=== PATIENT | female | born 1945 | race African-American/Black ===

== ENCOUNTER 2016-08-18 14:53 | Inpatient (IN) ==
--- NOTE | 2016-08-18 15:10 | ED EKG INTERP ---
EKG Interpretation - EKG Time of EKG reading by physician:: 15:02 EKG Read and Signed by:: Latoya Cohen EKG Interpretation (*Must complete 3 of following elements*): Abnormal Rate: 114 Rhythm: Sinus Tachycardia with PSVCs QRS: LVH FL Interval: normal ST Wave: normal Comments: LAE Attestation - Scribe Verification/Attestation Scribe:: Abel Cobos Acting as Scribe for:: Latoya Cohen Scribe documention review:: This chart was documented by a scribe and accurately reflects the service the provider performed and the decisions made by the provider. Physician Attestation - Physician Attestation I, the provider, attest to the following statement:: Latoya Cohen Physician documentation Attestation:: This documentation recorded by the scribe accurately reflects the service I personally performed and the decisions made by me.
[2016-08-18 15:33] LABS: MANUAL DIFF NEEDED? NO
[2016-08-18 15:40] LABS: BASO% 0.4 % (0.0-0.8); EOS# 0.15 X1000 (0.0-0.7); EOS% 2.2 % (0.0-10.0); HEMATOCRIT 34.3 % (37.0-47.0); HEMOGLOBIN 11.2 g/dL (12.0-16.0); LYMPH% 26.9 % (20.5-51.1); MCH 26.2 PG (27-31); MCHC 32.7 g/dL (33-37); MCV 80.1 FL (81-99); MONO# 0.54 X1000 (0.11-0.59); MONO% 8.1 % (1.7-9.3); MPV 10.8 FL (7.4-10.4); NEUT% 62.4 % (42.2-75.2); PLT 275 X1000 (130-400); RBC 4.28 XMIL (4.2-5.4)
[2016-08-18 16:09] LABS: ALBUMIN 3.6 g/dL (3.5-5.0); CALCIUM 8.6 mg/dL (8.8-10.2); POTASSIUM 4.4 mmol/L (3.5-5.1); TOTAL BILIRUBIN 0.33 mg/dL (0.20-1.00); TOTAL PROTEIN 7.1 g/dL (6.3-8.3)
[2016-08-18 16:11] LABS: INR 0.98; PROTIME 10.3 Seconds (9.2-11.7)
[2016-08-18 16:33] LABS: PTT 20.4 Seconds (22.0-36.0)
--- NOTE | 2016-08-18 16:37 | Diag Imaging Result Document ---
PROCEDURE NAME: CHEST-2 VIEWS - 08/18/2016 CHEST X-RAY, 2 VIEWS: COMPARISON: 06/08/2014. FINDINGS: Stable cardiomegaly. Stable pulmonary vascular congestion. There are bilateral indistinct interstitial infiltrates suggesting pulmonary edema. There are trace pleural effusions. IMPRESSION: Cardiomegaly, pulmonary edema, pleural effusions.
[2016-08-18] MEDS ORDERED: LASIX IV ONE (16:50)
[2016-08-18] MEDS ORDERED: XOPENEX NEB INH ONE (16:51)
--- NOTE | 2016-08-18 16:57 | PROVIDER DOCUMENTATION ---
HPI-Cardiac General - General Chief Complaint: Shortness of Breath Stated Complaint: cough/congestion/elevated bp Time Seen by Provider: 08/18/16 16:23 Source: patient Allergies/Adverse Reactions: Patient Allergies Allergy/AdvReac Type Severity Reaction Status Date / Time No Known Allergies Allergy Verified 08/18/16 15:28 Home Medications: Home Medication List Medication Instructions Recorded Confirmed Last Taken Type Amlodipine Besylate [Norvasc] 5 mg PO DAILY 06/09/14 06/09/14 Unknown History Aspirin [Ecotrin] 325 mg PO DAILY 06/09/14 06/09/14 Unknown History Acetaminophen [Tylenol] 325 mg PO Q4-6H PRN PRN #0 tablet 06/13/14 Unknown Rx Amlodipine [Norvasc] 5 mg PO DAILY #30 tablet 06/13/14 Unknown Rx Atenolol 50 mg PO DAILY #30 06/13/14 06/09/14 Unknown Rx Atorvastatin Calcium [Lipitor] 40 mg PO QHS #30 06/13/14 06/09/14 Unknown Rx Furosemide [Lasix] 40 mg PO BID #0 06/13/14 06/09/14 Unknown Rx Glimepiride [Amaryl] 1 mg PO BID #0 tablet 06/13/14 Unknown Rx Isosorbide Dinitrate [Isordil] 20 mg PO TID #270 06/13/14 06/09/14 Unknown Rx Potassium Chloride 30 meq PO TID #0 tablet.er 06/13/14 Unknown Rx RAMIpril [Altace] 5 mg PO DAILY #30 capsule 06/13/14 Unknown Rx - History of Present Illness-Cardiac Nature of Presenting Problem: 71 y/o F presented to ER complaining of progressive shortness of breath at rest. She has a hx of CHF and ran out of her medication. She denies any other symptoms including chest pain, palpitation, nausea, sweating or dizziness. Quality of Pain: reports: none Onset/Duration: 24 hours ago Timing: still present, getting worse Modifying Factors: improves with: other (erect position) Palpitation Quality: N/A History of arrythmia: reports: none Recent use of:: reports: no stimulants Prior Chest Pain/Cardiac Workup: reports: angina, cardiac cath (mild disease - no stent) Associated Symptoms: reports: edema, fatigue, shortness of breath Similar Symptoms Previously?: Yes Recently Seen Here or By Another Healthcare Provider: No Review of Systems - Adult - REVIEW OF SYSTEMS - ADULT Constitutional: reports: fatique Eyes: reports: no symptoms reported Ears, Nose, Mouth & Throat: reports: no symptoms reported Cardiovascular: reports: edema, orthopnea. denies: chest pain Respiratory: reports: dyspnea on exertion, shortness of breath. denies: cough, excessive sputum production Gastrointestinal: reports: no symptoms reported Genitourinary: reports: no symptoms reported Musculoskeletal: reports: no symptoms reported, back pain Neurological: reports: no symptoms reported Psychiatric: reports: no symptoms reported Endocrine: reports: no symptoms reported Hematologic/Lymphatic: reports: no symptoms reported Past History - Adult - PAST MEDICAL HISTORY-ADULT Review of Records: reports: Nursing Assessment Review, Medications Reviewed Cardiovascular: reports: CHF, HTN, hyperlipidemia Neurological: reports: CVA (in 2010) Endocrine/Immune: reports: Diabetes - PRIOR SURGERIES/PROCEDURES Surgical/Procedure History: reports: appendectomy - IMMUNIZATION STATUS Flu Vaccine: UTD Physical Exam-General - PHYSICAL EXAM-ADULT Initial Vital Signs Reviewed: Yes - CONSTITUTIONAL General Appearance: severe distress, obese - EYES Eyes: PERRL/EOMI - HEAD, EARS, NOSE, MOUTH & THROAT HENMT: normal ENT inspection - NECK Neck: supple - RESPIRATORY Respiratory: chest non-tender, respiratory distress, accessory muscle use, rales , increased rate - CARDIOVASCULAR Cardiovascular: tachycardia - GASTROINTESTINAL (ABDOMEN) Abdominal Exam: normal bowel sounds, soft - MUSCULOSKELETAL Extremity: pedal edema (1+) Peripheral Pulses: dorsalis-pedis (R): 1+, dorsalis-pedis (L): 1+ - SKIN Integumentary: diaphoresis - NEUROLOGIC Neurologic: grossly normal - PSYCHIATRIC Psych/Mental Status: oriented x 3 Progress - PLAN OF CARE/RESULTS Progress/Plan/Lab Results: Vital Signs - 24 hr 08/18/16 08/18/16 14:55 16:25 Temperature 98.3 F Pulse Rate 132 H 106 H Respiratory 24 22 Rate Blood Pressure 171/139 184/121 O2 Sat by Pulse 96 99 Oximetry Laboratory Tests 08/18/16 08/18/16 08/18/16 15:17 15:17 15:17 WBC 6.70 RBC 4.28 Hgb 11.2 L Hct 34.3 L MCV 80.1 L MCH 26.2 L MCHC 32.7 L RDW Std Deviation 13.7 Plt Count 275 MPV 10.8 H Immature Gran % (Auto) 0.0 Neut % (Auto) 62.4 Lymph % (Auto) 26.9 [place] % (Auto) 8.1 Eos % (Auto) 2.2 Baso % (Auto) 0.4 Immature Gran # (Auto) 0.00 Neut # (Auto) 4.18 Lymph # (Auto) 1.80 [place] # (Auto) 0.54 Eos # (Auto) 0.15 Baso # (Auto) 0.03 PT INR PTT (Actin FS) D-Dimer 0.78 H Sodium 142 Potassium 4.4 Chloride 109 H Carbon Dioxide 16 L Anion Gap 17 BUN 35 H Creatinine 2.4 H Estimated GFR/1.73 m2 24 BUN/Creatinine Ratio 15 Glucose 144 H Calculated Osmolality 294 Calcium 8.6 L Magnesium 2.0 Total Bilirubin 0.33 AST 13 ALT 10 Alkaline Phosphatase 93 Creatine Kinase 89 Troponin T Kkj-W-Pzuusnwojnt Pept Total Protein 7.1 Albumin 3.6 Globulin 3.5 Albumin/Globulin Ratio 1.0 08/18/16 08/18/16 08/18/16 15:17 15:17 15:17 WBC RBC Hgb Hct MCV MCH MCHC RDW Std Deviation Plt Count MPV Immature Gran % (Auto) Neut % (Auto) Lymph % (Auto) [place] % (Auto) Eos % (Auto) Baso % (Auto) Immature Gran # (Auto) Neut # (Auto) Lymph # (Auto) [place] # (Auto) Eos # (Auto) Baso # (Auto) PT 10.3 INR 0.98 PTT (Actin FS) 20.4 L D-Dimer Sodium Potassium Chloride Carbon Dioxide Anion Gap BUN Creatinine Estimated GFR/1.73 m2 BUN/Creatinine Ratio Glucose Calculated Osmolality Calcium Magnesium Total Bilirubin AST ALT Alkaline Phosphatase Creatine Kinase Troponin T 0.017 Vrl-D-Kaqlsonwzkp Pept 6054 H Total Protein Albumin Globulin Albumin/Globulin Ratio - XRAY 1 XRAY Study: Chest Impression: Abnormal XRAY Interpretation: cardiomegaly - pulmonary edema - CONSULTS/PCP/HOSPITALIST Notification #1 *Consult/PCP/Hospitalist*: Discussed case with Dr. Randall (admit under Dr. Austin) Time Discussed: 16:59 Consult Disposition: Admit (ICU) Departure - Departure Time of Disposition Order: 16:57 DIAGNOSIS: Pulmonary edema, Acute systolic CHF (congestive heart failure), NYHA class 4, Hypertensive emergency Certified Medical Emergency: Emergent Condition: Critical Referrals: David Austin MD [Primary Care Provider] -
[2016-08-18] MEDS ORDERED: NS NEB INH SCH (17:00)
[2016-08-18] MEDS ORDERED: NITROGLYCERIN 50 MG/D5W 250 ML IV SCH (17:00)
--- NOTE | 2016-08-18 18:47 | HISTORY AND PHYSICAL ---
CHIEF COMPLAINT: Shortness of breath, paroxysmal nocturnal dyspnea, orthopnea. Since 2 days ago. HISTORY OF PRESENT ILLNESS: She is a 71-year-old female, patient of Dr. Austin and was not seen him for a while, came to the ER with a 2-day history of shortness of breath, orthopnea and cough. No swelling of feet. Patient was tachycardic and hypertensive. ER workup, chest x-ray, cardiomegaly consistent with CHF. ProBNP was high. The patient was given IV Lasix 80, IV nitroglycerin drip. Patient was stable. Denies any chest pain. She was admitted in 2014 at [facility]. She has been and basically admitted now acute decompensated systolic heart failure due to uncontrolled hypertension. PAST MEDICAL HISTORY: Type 2 diabetes, metabolic syndrome, hypertension, history of kidney stones, nonischemic cardiomyopathy, three-vessel disease, noncritical left heart catheterization by Dr. Renee. History of chronic congestive heart failure, systolic dysfunction, EF 40%. Chronic kidney disease. Baseline creatinine 1.9. PAST SURGICAL HISTORY: Appendectomy. MEDICATIONS: Aspirin 325 daily, Lipitor 40 daily, atenolol 50 mg daily, Altace 10 mg daily, Amaryl 1 mg daily, Lasix 40 daily, Isordil 30 mg b.i.d. ALLERGIES: Not known. 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 No smoking. No alcohol. Two of her children . FAMILY HISTORY: Mom of kidney failure. Father of cancer, not known, brothers have diabetes. REVIEW OF SYSTEMS: HEENT: No headache. No vision problem. No earache. No sore throat. Neck: No goiter. No lymphadenopathy. No bruits. Cardiopulmonary: No chest pain. Basically shortness of breath, orthopnea. Slightly PND, cough, no swelling of feet. GI: No nausea, vomiting, abdominal pain. : No history of hesitancy, frequency, dysuria, hematuria. Skin: No skin rashes. Musculoskeletal: No back pain. Endocrine: Diabetes not able to tolerate or take metformin due to chronic kidney disease. Neurologic: No focal symptoms or weakness, seizures, dizziness or vertigo. PHYSICAL EXAMINATION: VITAL SIGNS: She is tachycardic, blood pressure is 170/139, not in respiratory distress on 2 L nasal cannula. 5 feet 6, 275 pounds. HEENT: Atraumatic, normocephalic. Pupils equal, reactive to light. TMs are normal. Nose and throat within normal limits. NECK: Supple. No lymphadenopathy. JVD not able to see. CHEST: Bilateral air entry. Some wheezing. HEART: Sounds are tachycardic. No murmur. BREASTS: Deferred. ABDOMEN: Belly is soft, obese. No signs of peritonitis. Small umbilical hernia noted. Scar present in the right paramedian area from the previous appendectomy. EXTREMITIES: No peripheral edema, cyanosis, clubbing. Pulses are palpable. No signs of gangrene. NEUROLOGICAL: No obvious deficits noted. INVESTIGATIONS: CBC: White cell count 6.7, hematocrit 34, platelet 275,000. PT/INR is normal. D-dimer slightly elevated. SMA 7: Sodium 142, potassium 4.2, chloride 109, BUN 35, creatinine 2.4, glucose 144, calcium 8.6. ProBNP 6000. Cardiac enzymes were normal. Chest x-ray: Cardiomegaly consistent with CHF. ASSESSMENT AND PLAN: 1. A 71-year-old female, admitted to the hospital with acute decompensated systolic heart failure due to uncontrolled hypertension. Plan is oxygen, control the blood pressure with hydralazine, resume home medicines. IV Lasix was given. Fluid restrictions. Input and output. 2. Nonischemic coronary artery disease. Follow up on cardiac enzymes. 3. Type 2 diabetes. On Amaryl. Follow up on sliding scale. Check the A1c. 4. Deep venous thrombosis prophylaxis with subcutaneous heparin. Gastrointestinal prophylaxis with intravenous Protonix. 5. Reconcile home medications and also we will check the echocardiography and follow up on serial cardiac enzymes. The patient is stable, will be monitored on the flow and Dr. Austin is going to follow up in the morning. cc: Shaun Randall MD
[2016-08-18] MEDS ORDERED: APRESOLINE IV PRN (19:43)
[2016-08-18] MEDS: HUMULIN R SUBQ SCH (21:34)
[2016-08-18] MEDS: ISORDIL PO SCH (21:34)
[2016-08-18] MEDS: LIPITOR PO SCH (21:34)
[2016-08-18] MEDS: PROTONIX IV SCH (21:35)
[2016-08-18] MEDS: NITROGLYCERIN TOP SCH (21:35)
[2016-08-18] MEDS: SODIUM CHLORIDE 0.9% INJ SCH (21:35)
[2016-08-18] MEDS: HEPARIN SUBQ SCH (21:42)
[2016-08-19 04:00] LABS: ALLEN TEST YES; BE -6.2 mmoll (-3.0-3.0); BLOOD TYPE ARTERIAL; DRAW SITE R RADIAL; METHB 1.5 % (0.0-1.5); MODALITY CANNULA; O2(CT) 14.3 mL/dL (15.0-23.0); PCO2(98.6) 35 mmHg (35-45); PO2(98.6) 87 mmHg (60-100); SAMPLE BLOOD; SAO2 97.7 % (95.0-100.0); THB 10.6 g/dL (11.5-17.4); pH(98.6) 7.34 (7.35-7.45)
[2016-08-19] MEDS: NITROGLYCERIN TOP SCH ×4 (04:55→21:53)
--- NOTE | 2016-08-19 05:50 | EKG Report ---
Test Performed on : 08/18/2016 3:02:56 PM Test Reason : No order in [facility] Blood Pressure : / mmHG Vent. Rate : 114 BPM Atrial Rate : 114 BPM P-R Int : 128 ms QRS Dur : 090 ms QT Int : 346 ms P-R-T Axes : 061 056 109 degrees QTc Int : 476 ms Sinus tachycardia. with premature supraventricular complexes. Possible Left atrial enlargement Left ventricular hypertrophy with repolarization abnormality Abnormal ECG When compared with ECG of 12-JUN-2014 06:05, premature supraventricular complexes. are now present Unconfirmed Result
[2016-08-19 06:21] LABS: MANUAL DIFF NEEDED? NO
[2016-08-19 06:28] LABS: BASO% 0.3 % (0.0-0.8); EOS# 0.18 X1000 (0.0-0.7); EOS% 2.6 % (0.0-10.0); HEMATOCRIT 32.2 % (37.0-47.0); HEMOGLOBIN 10.4 g/dL (12.0-16.0); LYMPH# 2.38 X1000 (1.2-3.4); LYMPH% 33.8 % (20.5-51.1); MCH 26.1 PG (27-31); MCHC 32.3 g/dL (33-37); MCV 80.9 FL (81-99); MONO# 0.81 X1000 (0.11-0.59); MONO% 11.5 % (1.7-9.3); MPV 11.3 FL (7.4-10.4); NEUT% 51.8 % (42.2-75.2); PLT 278 X1000 (130-400); RBC 3.98 XMIL (4.2-5.4)
[2016-08-19] MEDS: HUMULIN R SUBQ SCH ×4 (06:34→20:19)
[2016-08-19 06:56] LABS: AGAP 17; BUN 39 mg/dL (8-22); CALCIUM 8.6 mg/dL (8.8-10.2); CHLORIDE 108 mmol/L (98-107); CK PROFILE 105 U/L (24-173); COSMO 297; HDL 26 mg/dL (45-65); LDL 112 mg/dL; SODIUM 144 mmol/L (136-145); TCO2 19 mmol/L (25-35); TRIGLYCERIDES 199 mg/dL (35-135); VLDL 40 mg/dL
[2016-08-19 07:12] LABS: FREE T4 1.05 ng/dL (0.93-1.70)
--- NOTE | 2016-08-19 08:40 | Diag Imaging Result Document ---
PROCEDURE NAME: CHEST-2 VIEWS - 08/19/2016 CHEST X-RAY, 2 VIEWS: COMPARISON: 08/18/2016. FINDINGS: Stable cardiomegaly and ill-defined interstitial infiltrates in the lung bases. Lung volumes are improved. There is decrease in the upper lobe interstitial infiltrates. No new infiltrates. IMPRESSION: Improved lung volumes. Improved aeration of the lungs.
[2016-08-19] MEDS: AMARYL PO SCH (09:30)
[2016-08-19] MEDS: ISORDIL PO SCH ×2 (09:31→20:18)
[2016-08-19] MEDS: TENORMIN PO SCH (09:33)
[2016-08-19] MEDS: ALTACE PO SCH (09:33)
[2016-08-19] MEDS: ASPIRIN EC PO SCH (09:34)
[2016-08-19] MEDS: LASIX IV SCH (09:35)
[2016-08-19] MEDS: HEPARIN SUBQ SCH ×2 (09:35→20:19)
--- NOTE | 2016-08-19 10:20 | EKG Report ---
Test Performed on : 08/19/2016 06:21:05 AM Test Reason : Ordered as Stress Test in error Blood Pressure : / mmHG Vent. Rate : 091 BPM Atrial Rate : 091 BPM P-R Int : 134 ms QRS Dur : 094 ms QT Int : 438 ms P-R-T Axes : 069 070 122 degrees QTc Int : 538 ms Normal sinus rhythm. Possible Left atrial enlargement Left ventricular hypertrophy T wave abnormality, consider lateral ischemia Prolonged QT Abnormal ECG When compared with ECG of 18-AUG-2016 15:02, (Unconfirmed) premature supraventricular complexes. are no longer present Inverted T waves have replaced nonspecific T wave abnormality in Anterior leads Confirmed by Mattie DODD, Rogers Samano ([id number]) on 08/19/2016 5:19:25 PM
--- NOTE | 2016-08-19 13:52 | ECHO REPORT ---
ORDER DATE: 08/18/2016 MEASUREMENTS: Left ventricle end-diastolic diameter: 4.2. Posterior wall thickness: 1.3. Septal thickness: 1.3. Left atrium: 4.8. Aortic root diameter: 2.8. SUMMARY: 1. Technically difficult study due to limited acoustic window quality in this obese patient. 2. Aortic mitral tricuspid and pulmonic valves are without evidence of structural abnormality. There is moderate (2+) mitral regurgitation and trace tricuspid regurgitation. Estimated systolic PA pressure by Doppler is 38 mmHg. The aortic root is normal in size. 3. Normal left ventricular chamber size with mild concentric left hypertrophy is demonstrated. Estimated left ejection fraction approximately 30% in the setting of global hypokinesis. Doppler suggests grade 1 left ventricular diastolic dysfunction due to impaired relaxation. Left atrium is moderately enlarged. Right atrium and right ventricle normal size with grossly preserved right ventricular systolic performance. 4. No pericardial fusion. 5. Appearance of inferior vena cava suggests normal central venous pressure. CONCLUSIONS: 1. Difficult study. 2. Moderate mitral regurgitation. 3. Mild pulmonary hypertension. 4. Mild concentric left hypertrophy with estimated left ejection fraction 30%. 5. Grade 1 left ventricular diastolic dysfunction. 6. Moderate left atrial enlargement. cc: MD Shaun Bosch MD
--- NOTE | 2016-08-19 17:08 | PROGRESS NOTE ---
DATE: 08/19/2016 SUBJECTIVE: The patient is breathing better and feels better than she did yesterday. She denies any chest pain. Denies particular leg pain or swelling. OBJECTIVE: Vital Signs: Afebrile, pulse 74, respirations 20, blood pressure 106/39, O2 saturations 97-100% on room air. Cardiovascular: RRR with occasional ectopy. EKG shows normal sinus rhythm with LVH. Nonspecific ST changes anteriorly. : Intake 1000, output 1450. It appears she has not measured all of her urine output as well. Lungs: Fairly clear to auscultation. Extremities: Trace lower extremity edema. LABS: White count 7, hemoglobin 10.4, platelets 278. ABG on 2 L this morning showed pH 7.34, pCO2 of 35, pO2 of 87, HC03 of 20. O2 saturation 97.7, sodium 144, potassium 4.0, chloride 108, CO2 of 19. BUN 39, creatinine 2.7, glucose 106, calcium 8.6, troponin 0.037. LDL 112, triglycerides 199, total cholesterol 178. TSH 0.13, free T4 of 1.05 Chest x-ray shows improvement in pulmonary edema pattern. Echocardiogram done 08/18/2016 reveals EF of 30%. Difficult exam. Moderate MR, mild pulmonary hypertension. Concentric LVH. Grade 1 left ventricular diastolic dysfunction. Moderate left atrial enlargement. ASSESSMENT: 1. Congestive heart failure, systolic and diastolic, acute on chronic. 2. Nonischemic cardiomyopathy. Known. 3. Chronic renal insufficiency. 4. Type 2 diabetes mellitus. 5. Hypercholesterolemia. 6. Coronary artery disease, noncritical. PLAN: At this time, continue Lasix, nitroglycerin paste, CONSTANCE inhibitor in the form of Altace. Continue prophylaxis of DVT with subcu heparin. Monitor strict I and O's and fluid restrict patient. We will ask Dr. Renee to see the patient as he follows her loosely in the past. Continue Amaryl, holding her metformin at this time. Continue atenolol and Lipitor. IV Protonix will be continued for prophylaxis of PUD. Continue aspirin therapy. cc: MD Shaun Hanna MD
[2016-08-19] MEDS: PROTONIX IV SCH (20:19)
[2016-08-19] MEDS: LANOXIN PO SCH (20:19)
[2016-08-19] MEDS: LIPITOR PO SCH (20:19)
[2016-08-19] MEDS: SODIUM CHLORIDE 0.9% INJ SCH (20:19)
[2016-08-20] MEDS: HUMULIN R SUBQ SCH ×3 (07:00→16:00)
[2016-08-20] MEDS: HEPARIN SUBQ SCH ×2 (09:15→22:50)
[2016-08-20] MEDS: ASPIRIN EC PO SCH (09:15)
[2016-08-20] MEDS: ALTACE PO SCH (09:15)
[2016-08-20] MEDS: LANOXIN PO SCH (10:00)
[2016-08-20] MEDS: APRESOLINE PO SCH ×2 (10:00→22:50)
[2016-08-20] MEDS ORDERED: ISORDIL PO SCH ×2 (10:00→20:00)
[2016-08-20] MEDS: AMARYL PO SCH (10:15)
[2016-08-20] MEDS: TENORMIN PO SCH (10:15)
[2016-08-20] MEDS ORDERED: APRESOLINE ONE (10:29)
[2016-08-20] MEDS: LASIX IV SCH (10:30)
[2016-08-20] MEDS: ISORDIL PO SCH ×2 (14:00→22:50)
--- NOTE | 2016-08-20 14:19 | CONSULTATION ---
DATE OF CONSULTATION: 08/20/2016 REQUESTING DOCTOR: David Austin MD. CHIEF COMPLAINT: Shortness of breath. HISTORY: Mrs. Cain is a very pleasant 71-year-old black female who is my patient from the office. She was admitted to the hospital on August 18 when she presented complaining of a relatively sudden onset of shortness of breath when she was just resting on her porch. This hit her very rapidly and she felt like she could not move. She immediately called the emergency medical service and was brought to the ER where they assessed her. Chest x-ray was consistent with congestive heart failure. EKG showed sinus tachycardia with left ventricular hypertrophy. Her blood work at the time of initial presentation showed a proBNP of 6054. Her D-dimer was trivially elevated at 0.78. Her white count was 6700. Hemoglobin 11.2, hematocrit 34.3. Her troponin was in the garsia zone, 0.017. Blood gases showed a saturation of 97.7% with a CO2 of 35, pH of 7.34. One of the troponins was 0.037. Her TSH was a little low at 0.13. They noted a BUN of 35, creatinine of 2.4. The patient was given Lasix, nitroglycerin paste, oxygen, and entirely she settled down. I am seeing her on August 20 in the morning. She is sitting at the bedside eating her breakfast. She basically feels back to her normal self. She denies having any chest pain, denies having any swelling of the legs, although she admits to the fact that she has gained more weight. The last time I saw her at the office, the patient weighed 262 pounds with a body mass index of 48, making her morbidly obese. PAST MEDICAL HISTORY: Her past history is significant for hypertension for a long time. She really has hypertensive cardiovascular disease with renal dysfunction and left ventricular hypertrophy. She has a history of coronary artery disease. We performed a heart catheterization on her on 06/12/2014 and found mild plaque in the LAD about 25%, mild to moderate disease in the right coronary artery at about 40%. The patient was admitted to [facility] in May 2014 with a similar presentation with evidence of systolic congestive heart failure, low ejection fraction. Back then, imaging studies revealed that her ejection fraction was 44% by nuclear imaging. Echocardiogram was 40%. On this admission, they have done another echocardiogram which was technically difficult, and that study is reported as indicating an ejection fraction of 30%. The patient has had a previous stroke in 2012. She has renal dysfunction with a creatinine clearance of 44 mL/min. on a previous evaluation. She has hyperlipidemia. She has been studied by Dr. Garduno for sleep apnea. However, CPAP mask was not prescribed, SURGICAL HISTORY: Positive for appendectomy, tubal ligation, kidney stones. SOCIAL HISTORY: She lives with her daughter. She has had 4 children. Two of them are . She is retired. She is not a smoker or a drinker. FAMILY HISTORY: Negative for heart disease. HOME MEDICATIONS: At the time of this hospital admission included atenolol 50 mg daily, Ecotrin 325 daily, atorvastatin 40 daily, furosemide 40 daily, glimepiride 1 mg daily, isosorbide dinitrate 30 twice a day, ramipril 10 mg daily. PHYSICAL EXAMINATION TODAY: Vital signs: Temperature 98.5, pulse 71, respirations 16, blood pressure 145/71. General: She is awake, alert, oriented, in no distress. HEENT: Unremarkable. Chest: Diminished breath sounds at the right base. Cardiac: Heart sounds are regular and rhythmic. I do not hear a gallop or murmur. Abdomen: Quite obese. Extremities: No edema. She has very good pulses. Neurological: She is alert and oriented x3, moves four extremities, no deficits. Cranial nerves are normal. EKG done today shows sinus rhythm with left ventricular hypertrophy and repolarization abnormality. Rate is 60-70 per minute. QRS duration 92. VT interval 146. She has a pattern consistent with long-term hypertension. IMPRESSION: 1. Patient presenting with exacerbation of congestive heart failure, systolic in nature, related to long-term hypertensive heart disease. 2. History of mild coronary artery disease by heart cath 2 years ago. 3. History of hyperlipidemia. 4. Morbid obesity. 5. Questionable sleep apnea syndrome. 6. Hyperlipidemia. 7. Chronic renal dysfunction, CKD stage 3B. RECOMMENDATION: At this time, I would suggest to optimize her medical therapy. I am going to add digoxin, and I will also add isosorbide dinitrate at high doses with hydralazine and see how she responds to that. Isosorbide dinitrate should be prescribed 3 times a day in conjunction with hydralazine at specified times. Further advice will be forthcoming, and thank you again for the opportunity to participate in her evaluation. Best regards. cc: MD Shaun Mcclain MD
--- NOTE | 2016-08-20 21:33 | EKG Report ---
Test Performed on : 08/20/2016 07:00:05 AM Test Reason : CHF Blood Pressure : / mmHG Vent. Rate : 067 BPM Atrial Rate : 067 BPM P-R Int : 146 ms QRS Dur : 092 ms QT Int : 464 ms P-R-T Axes : 060 059 121 degrees QTc Int : 490 ms Normal sinus rhythm. with sinus arrhythmia. Possible Left atrial enlargement Left ventricular hypertrophy T wave abnormality, consider anterolateral ischemia Prolonged QT Abnormal ECG When compared with ECG of 19-AUG-2016 06:21, T wave inversion more evident in Lateral leads Confirmed by Sai Martinez MD ([id number]) on 08/21/2016 12:54:15 PM
[2016-08-20] MEDS: LIPITOR PO SCH (22:50)
[2016-08-20] MEDS: PROTONIX IV SCH (22:50)
[2016-08-21] MEDS: TYLENOL PO PRN ×4 (00:15→20:17)
[2016-08-21] MEDS: HUMULIN R SUBQ SCH ×5 (00:36→20:19)
[2016-08-21] MEDS: APRESOLINE PO SCH ×3 (06:47→20:17)
[2016-08-21] MEDS: ISORDIL PO SCH ×3 (06:48→20:17)
[2016-08-21 07:02] LABS: CALCIUM 8.1 mg/dL (8.8-10.2); POTASSIUM 4.3 mmol/L (3.5-5.1)
[2016-08-21] MEDS: TENORMIN PO SCH (09:23)
[2016-08-21] MEDS: ASPIRIN EC PO SCH (09:23)
[2016-08-21] MEDS: LANOXIN PO SCH (09:23)
[2016-08-21] MEDS: AMARYL PO SCH (09:23)
[2016-08-21] MEDS: ALTACE PO SCH (09:24)
[2016-08-21] MEDS: LASIX IV SCH (09:25)
[2016-08-21] MEDS: HEPARIN SUBQ SCH ×2 (09:25→20:17)
--- NOTE | 2016-08-21 12:43 | PROGRESS NOTE ---
DATE: 08/21/2016 INTERVAL HISTORY: Patient now with new complaints, right flank pain started last night requiring Tylenol. She does have her gallbladder. History of remote kidney stones and the appendix was taken out. Pain is localized and nonradiating. She has been lying on the left side. Shortness of breath, improved. Patient was seen by hadoop engineer, Dr. Renee optimizing the treatment with isosorbide and hydralazine to reduce the afterload. She also has chronic kidney disease. PAST MEDICAL HISTORY: Reviewed. PAST SURGICAL HISTORY: Reviewed. MEDICATIONS: Reviewed. REVIEW OF SYSTEMS: HEENT: No headache. No vision problem. No earache. No sore throat. Cardiopulmonary: No chest pain, shortness of breath, PND, orthopnea. Gastrointestinal: Right- sided flank pain localized. No radiation. Genitourinary: No history of hesitancy, frequency. Hematuria and dysuria. No swelling of feet. Neurologic: No focal symptoms. PHYSICAL EXAMINATION: Vital Signs: Stable. Temperature is 98 degrees, pulse is 99, blood pressure is 124/52, 275 pounds. HEENT: Atraumatic, normocephalic. Pupils equal, react to light. Neck: Supple. JVD not able to see. Chest: Bilateral air entry. Heart: Sounds are regular. Exam is suboptimal due to obesity. Gastrointestinal: Belly is soft. Tender in the right flank area. No signs of peritonitis. No peripheral edema noted. Neurologic: No obvious deficits. INVESTIGATIONS: SMA 7, sodium 139, potassium 4.3, chloride 104, BUN 54, creatinine 3.0, glucose 154. Triglycerides 199, cholesterol 178, HDL 26. Free T4 is normal. ASSESSMENT AND PLAN: 1. Congestive heart failure due to acute systolic dysfunction. Continue the treatment as per Dr. Renee. Currently on isosorbide 40 mg t.i.d., Altace 10 mg daily, Lanoxin 250 mcg daily. Hydralazine 25 t.i.d., Lasix 60 mg IV daily. 2. Deep venous thrombosis prophylaxis with heparin. 3. Type 2 diabetes on sliding scale and glimepiride. 4. New problem: Right-sided flank pain. Rule out gallstones and kidney stones. Follow up on urine cultures and repeat the labs in the morning, and ultrasound of the abdomen. Dr. Austin is going to follow up. cc: Shaun Randall MD
--- NOTE | 2016-08-21 13:58 | PROGRESS NOTE ---
DATE: 08/21/2016 CHIEF COMPLAINT: Shortness of breath. SUBJECTIVE: Ms. Cain is breathing better today. She just had a bout of pain in the right upper quadrant. She has not had cholecystectomy in the past; however, she says that she has had kidney stones in the past. After the Tylenol, she is feeling somewhat better. OBJECTIVE: Blood pressure is 163/74, pulse 82, temperature 98.6, respirations 17. She is awake, alert and oriented, obese, in no distress. HEENT: Unremarkable. Chest: Fairly clear to auscultation and percussion. Heart sounds are regular and rhythmic. No gallop or murmur. Abdomen is obese and slightly tender in the right upper quadrant. Extremities showed no edema. Neurologic: Moves all 4 extremities. Follows commands. DIAGNOSTIC DATA: Sodium is 139, potassium 4.3, BUN is 54, creatinine 3.0. IMPRESSION: 1. The patient has chronic congestive heart failure, systolic dysfunction. 2. Coronary artery disease, mild. 3. Hypertension with hypertensive cardiovascular disease. 4. Morbid obesity. 5. Pain in the right upper quadrant. Rule out kidney stones. 6. Chronic kidney disease stage 3B. RECOMMENDATIONS: At this point in time, we will continue to optimize vasodilators. I will probably wait and see what her blood pressure does today before making any changes. We may want to switch from atenolol to metoprolol. Metoprolol may be better for her given her renal dysfunction. Atenolol is renally eliminated and may not be a good choice for her. Further advice will be forthcoming. Of note, her lipid panel from 08/19/2016 showed cholesterol of 178, triglycerides 199, HDL of 26 and LDL of 112. We will follow her. cc: MD Shaun Mcclain MD [facility]
[2016-08-21] MEDS: LIPITOR PO SCH (20:17)
[2016-08-21] MEDS: SODIUM CHLORIDE 0.9% INJ SCH (20:17)
[2016-08-21] MEDS: PROTONIX IV SCH (20:17)
[2016-08-21 22:21] LABS: URINE MICRO REVIEW NEEDED? NO; URINE SOURCE VOIDED
[2016-08-21 22:35] LABS: BILIRUBIN URINE NEGATIVE (NEGATIVE); BLOOD URINE NEGATIVE (NEGATIVE); COLOR YELLOW; GLUCOSE URINE NEGATIVE (NEGATIVE); LEUKOCYTES URINE NEGATIVE (NEGATIVE); NITRITE URINE NEGATIVE (NEGATIVE); PROTEIN URINE 30 mg/dL (NEGATIVE); SP GRAVITY URINE 1.015; TURBIDITY URINE CLEAR (CLEAR); UROBILINOGEN URINE NORMAL (NORMAL)
[2016-08-21 22:38] LABS: UR EPITHELIAL CELLS <10 /HPF (<10); URINE BACTERIA NEGATIVE /HPF; URINE RBC <10 /HPF (<10); URINE WBC <10 /HPF (<10)
[2016-08-22 05:44] LABS: MANUAL DIFF NEEDED? NO
[2016-08-22 05:49] LABS: BASO% 0.3 % (0.0-0.8); EOS# 0.36 X1000 (0.0-0.7); EOS% 3.8 % (0.0-10.0); HEMOGLOBIN 10.8 g/dL (12.0-16.0); IMM GRAN# 0.02 X1000 (0.0-0.04); IMM GRAN% 0.2 % (0.0-0.5); LYMPH# 3.74 X1000 (1.2-3.4); LYMPH% 39.2 % (20.5-51.1); MCH 26.9 PG (27-31); MCHC 32.7 g/dL (33-37); MCV 82.3 FL (81-99); MONO# 1.05 X1000 (0.11-0.59); MPV 11.2 FL (7.4-10.4); NEUT% 45.5 % (42.2-75.2); PLT 283 X1000 (130-400); RBC 4.01 XMIL (4.2-5.4)
[2016-08-22 06:18] LABS: ALBUMIN 3.5 g/dL (3.5-5.0); CALCIUM 8.4 mg/dL (8.8-10.2); POTASSIUM 4.4 mmol/L (3.5-5.1); TOTAL BILIRUBIN 0.21 mg/dL (0.20-1.00)
[2016-08-22] MEDS: TYLENOL PO PRN ×3 (06:43→20:30)
[2016-08-22] MEDS: APRESOLINE PO SCH ×3 (06:43→20:31)
[2016-08-22] MEDS: ISORDIL PO SCH ×3 (06:43→20:30)
[2016-08-22] MEDS: HUMULIN R SUBQ SCH ×4 (06:46→21:00)
[2016-08-22] MEDS: HEPARIN SUBQ SCH ×2 (10:10→20:31)
[2016-08-22] MEDS: LASIX PO SCH (10:11)
[2016-08-22] MEDS: ASPIRIN EC PO SCH (10:11)
[2016-08-22] MEDS: LANOXIN PO SCH (10:11)
[2016-08-22] MEDS: AMARYL PO SCH (10:11)
[2016-08-22] MEDS: TENORMIN PO SCH (10:13)
[2016-08-22] MEDS: ALTACE PO SCH (10:13)
--- NOTE | 2016-08-22 10:45 | Diag Imaging Result Document ---
PROCEDURE NAME: US ABDOMEN-COMPLETE - 08/22/2016 COMPLETE ABDOMINAL ULTRASOUND: COMPARISON: Renal ultrasound dated 06/11/2014. FINDINGS: The gallbladder is partially contracted as the patient reportedly ate fairly soon before this exam. Accounting for the contraction, there is no evidence of significant wall thickening. No shadowing stones are identified. There is no pericholecystic fluid. The common bile duct is normal in diameter. The liver, spleen, visualized pancreas, IVC, and the proximal and mid aorta are grossly unremarkable. The distal aorta is obscured by bowel gas. The kidneys are somewhat hyperechoic similar to the previous study, which is a nonspecific indicator of medical renal disease. The kidneys are grossly unremarkable, otherwise. IMPRESSION: 1. Contracted gallbladder as the patient was not n.p.o. 2. Somewhat echogenic kidneys, which is a nonspecific indicator of medical renal disease.
[2016-08-22] MEDS: SODIUM CHLORIDE 0.9% INJ SCH (20:31)
[2016-08-22] MEDS: LIPITOR PO SCH (20:31)
[2016-08-22] MEDS: PROTONIX IV SCH (20:31)
[2016-08-23 05:37] LABS: MANUAL DIFF NEEDED? NO
[2016-08-23 05:47] LABS: BASO% 0.4 % (0.0-0.8); EOS# 0.26 X1000 (0.0-0.7); EOS% 3.8 % (0.0-10.0); HEMATOCRIT 31.1 % (37.0-47.0); LYMPH# 2.19 X1000 (1.2-3.4); LYMPH% 32.4 % (20.5-51.1); MCH 26.4 PG (27-31); MCHC 32.2 g/dL (33-37); MCV 82.1 FL (81-99); MONO# 0.85 X1000 (0.11-0.59); MONO% 12.6 % (1.7-9.3); MPV 11.1 FL (7.4-10.4); NEUT% 50.8 % (42.2-75.2); PLT 261 X1000 (130-400); RBC 3.79 XMIL (4.2-5.4)
[2016-08-23 06:13] LABS: ALBUMIN 3.5 g/dL (3.5-5.0); CALCIUM 7.8 mg/dL (8.8-10.2); POTASSIUM 4.6 mmol/L (3.5-5.1); TOTAL BILIRUBIN 0.15 mg/dL (0.20-1.00); TOTAL PROTEIN 6.9 g/dL (6.3-8.3)
[2016-08-23] MEDS: APRESOLINE PO SCH ×3 (06:43→22:47)
[2016-08-23] MEDS: TYLENOL PO PRN (06:43)
[2016-08-23] MEDS: ISORDIL PO SCH ×3 (06:43→22:45)
[2016-08-23] MEDS: HUMULIN R SUBQ SCH ×4 (06:43→22:44)
--- NOTE | 2016-08-23 10:10 | Diag Imaging Result Document ---
PROCEDURE NAME: ABDOMEN/PELVIS W/O CONTRAST - 08/23/2016 CT ABDOMEN AND PELVIS WITHOUT CONTRAST: TECHNIQUE: No contrast administered per request of the referring provider. A dose reduction protocol was used. No comparison exam. FINDINGS: There is mild subsegmental atelectasis or scarring at the visualized right lung base. There is also a calcified granuloma from old granulomatous disease at the posterior right base. There are no substantial abnormalities of the liver, spleen, or pancreas identified. There is generalized mild fullness of the bilateral adrenal glands which may relate to mild adrenal hyperplasia. There are no calcified gallstones or pericholecystic inflammation identified. There is no renal stone or hydronephrosis identified. There is no evidence of bowel obstruction. There is a small fat-containing periumbilical hernia. There is no bowel-containing hernia seen. The appendix by history is surgically absent. There is colonic diverticulosis. There is no evidence of diverticulitis. There is no abscess identified. There is no free air. There is no substantial free fluid seen. There are nonspecific small retroperitoneal lymph nodes. There are no substantially enlarged lymph nodes identified. There are lumbar spine degenerative changes noted. IMPRESSION: 1. No evidence of renal stone or hydronephrosis. 2. No bowel obstruction. Uncomplicated colonic diverticulosis. 3. No visible inflammatory process. No abscess. No free air. 4. Small fat-containing periumbilical hernia. No bowel-containing hernia.
--- NOTE | 2016-08-23 15:56 | Diag Imaging Result Document ---
PROCEDURE NAME: HIDA SCAN W/ EJECTION FRACTION - 08/23/2016 NUCLEAR MEDICINE HIDA SCAN: COMPARISON: None available. FINDINGS: 5.4 mCi of technetium-99m Choletec was administered intravenously, and there was normal immediate hepatocellular uptake after administration. Activity is seen in the gallbladder beginning at about 6 minutes post administration. Activity is seen in small bowel beginning at about 3 minutes post administration. 8 ounces of liquid fatty meal was then administered orally. The calculated gallbladder ejection fraction is 63%. IMPRESSION: Unremarkable HIDA scan. An abnormally low ejection fraction (less than 35%) can be present in patients without gallbladder dyskinesis or chronic cholecystitis who have other medical conditions. These include, but are not limited to, patients with diabetes mellitus, irritable bowel syndrome, , gastroenteritis, peptic ulcer disease, and patients who are receiving morphine or nifedipine.
--- NOTE | 2016-08-23 17:27 | PROGRESS NOTE ---
DATE: 08/23/2016 CHIEF COMPLAINT: Shortness of breath, hypertension. SUBJECTIVE: Ms. Cain is feeling better. She was having pain in the flank and they have done a number of studies including a CT scan, HIDA scan, ultrasound. Thus far, no evidence of gallstones. As far as her chest, she feels like she has improved. OBJECTIVE: Vital signs: Blood pressure 143/52, temperature 99.4, pulse 68, respirations 17. General: She is awake, alert, oriented, laying comfortably in bed. HEENT: Unremarkable. Chest: Clear to auscultation and percussion. Cardiac: Heart sounds are regular and rhythmic. I do not hear any obvious gallop or murmur. Abdomen: Nontender, soft. There is some discomfort at the level of the right lower rib cage. The right flank is also somewhat sore. No hepatomegaly is noted. Extremities: Show good pulses. No obvious edema. Neurologic: She moves four extremities. LABORATORY DATA: Sodium 138, potassium 46, BUN 57, creatinine 3.1. Glucose is 114. Liver function tests are normal. Lipase is slightly elevated at 100. Amylase was 178. IMPRESSION: 1. Patient who presented with increasing dyspnea and uncontrolled hypertension. She has chronic congestive heart failure with systolic dysfunction. 2. History of mild coronary disease. 3. Hypertension which is better controlled now. 4. Pain in the flank, etiology undetermined. 5. Morbid obesity. 6. Chronic kidney disease. Her glomerular filtration rate estimated for age and weight is 40 mL per minute. That makes her stage 3B chronic kidney disease. RECOMMENDATIONS: At this point in time, I would suggest to continue present medical therapy as outlined in the EMR. I think the doses of hydralazine and isosorbide dinitrate 3 times a day are adequate for her along with ramipril. Her digoxin level should probably be checked in the morning to make sure that it is good. We will see how she does as an outpatient. We will be arranging for a visit in 3-4 weeks after discharge. Please feel free to call me should you have any questions. cc: MD Shaun Mcclain MD
[2016-08-23] MEDS: AMARYL PO SCH (19:45)
[2016-08-23] MEDS: TENORMIN PO SCH (19:46)
[2016-08-23] MEDS: LASIX PO SCH (19:47)
[2016-08-23] MEDS: LANOXIN PO SCH (19:47)
[2016-08-23] MEDS: ASPIRIN EC PO SCH (19:48)
[2016-08-23] MEDS: HEPARIN SUBQ SCH ×2 (19:48→22:45)
[2016-08-23] MEDS: ALTACE PO SCH (19:48)
[2016-08-23] MEDS: LIPITOR PO SCH (22:45)
[2016-08-23] MEDS: PROTONIX IV SCH (22:46)
[2016-08-24 05:17] LABS: URINE CULTURE NEEDED? NO; URINE SOURCE CLEAN CATCH
[2016-08-24 05:30] LABS: BILIRUBIN URINE NEGATIVE (NEGATIVE); BLOOD URINE NEGATIVE (NEGATIVE); CLARITY CLEAR (CLEAR); COLOR YELLOW; GLUCOSE URINE NEGATIVE (NEGATIVE); LEUKOCYTES URINE NEGATIVE (NEGATIVE); NITRITE URINE NEGATIVE (NEGATIVE); PROTEIN URINE 100 mg/dL (NEGATIVE); SP GRAVITY URINE 1.015; UROBILINOGEN URINE 0.2 EU/dL (0.2-1.0)
[2016-08-24 05:54] LABS: URINE EPITHELIAL CELLS <10 /HPF (<10)
[2016-08-24] MEDS: ISORDIL PO SCH (06:31)
[2016-08-24] MEDS: APRESOLINE PO SCH (06:31)
[2016-08-24] MEDS: HUMULIN R SUBQ SCH ×2 (06:33→11:42)
[2016-08-24] MEDS: ASPIRIN EC PO SCH (08:24)
[2016-08-24] MEDS: LASIX PO SCH (08:24)
[2016-08-24] MEDS: TENORMIN PO SCH (08:24)
[2016-08-24] MEDS: ALTACE PO SCH (08:24)
[2016-08-24] MEDS: HEPARIN SUBQ SCH (08:26)
[2016-08-24] MEDS: LANOXIN PO SCH (08:26)
[2016-08-24] MEDS: AMARYL PO SCH (08:32)
[2016-08-24 11:36] VITALS: BP 153/79
--- NOTE | 2016-09-18 20:27 | DISCHARGE SUMMARY ---
ADMISSION DATE: 08/18/2016 DISCHARGE DATE: 08/24/2016 DISCHARGE DIAGNOSES: 1. Acute on chronic systolic congestive heart failure. 2. Uncontrolled hypertension. 3. Chronic renal insufficiency, stage IIIB. 4. Right upper quadrant/right flank pain with no definite etiology found. 5. Nonischemic cardiomyopathy. 6. Noncritical coronary artery disease. 7. Type 2 diabetes mellitus. 8. Obesity. 9. History of kidney stones. 10. Hyperlipidemia. CONSULTANTS: Dr. Wu Renee, Cardiology. PROCEDURES: 1. Chest x-ray done 08/18/2016 revealing cardiomegaly, pulmonary edema, pleural effusions. 2. Echocardiogram done 08/18/2016 revealing technically difficulty study. Moderate mitral regurgitation, mild pulmonary hypertension, mild concentric left ventricular hypertrophy with ejection fraction of 30%. Grade 1 left ventricular diastolic dysfunction. Moderate left atrial enlargement. 3. Abdominal ultrasound revealing contracted gallbladder, echogenic kidneys, which is a nonspecific indicator of medical renal disease. 4. HIDA scan with CCK. Unremarkable study with EF of 63%. 5. CT abdomen and pelvis without contrast, revealing no renal stone nor hydronephrosis. No bowel obstruction. Uncomplicated colonic diverticulosis was noted. No visible inflammatory process, abscess or free air. Small fat-containing periumbilical hernia. No bowel-containing hernia. REASON FOR ADMISSION AND HOSPITAL COURSE: The patient is a 71-year-old black female, followed in my medical practice. She has not been to the office in some extended period of time. She came into tachypneic and hypertensive and ER workup revealed cardiomegaly and CHF pattern. ProBNP was elevated and the patient was treated with IV Lasix and IV nitroglycerin drip. She suffers from chronic renal insufficiency. White count on admission was 6.7 with hematocrit of 34, platelets of 275,000. D-dimer was slightly elevated. Chest x-ray revealed pleural effusions and CHF pattern with cardiomegaly. Sodium 142, potassium 4.2, BUN 35, creatinine 2.4, glucose 144, cardiac enzymes were normal. ProBNP 6000. Patient responded to the IV Lasix and Dr. Renee was consulted. He adjusted her medications, adding hydralazine and digoxin. She was given sliding scale and serial Accu-Cheks were obtained. Echocardiogram was performed with results as above. She was prophylaxed for DVT as well as GI ulcers. Patient responded, but did develop some flank pain on the right with right upper quadrant pain and abdominal ultrasound, HIDA scan and CT abdomen and pelvis were not forthcoming as far as any definitive diagnosis on that. That may have been related to muscle spasm and she seemed to improve with that prior to discharge. By 08/24/2016, she had improved with control of her blood pressure, and it was felt that she could be discharged home. Discharge white count was 6.7, hemoglobin 10, platelets 261,000. BUN was 57, creatinine 3.1, potassium 4.6, sodium 138, amylase was 178, lipase mildly elevated at 100. Patient was encouraged an ADA diet. DISCHARGE MEDICATIONS: Ecotrin 325 mg p.o. daily. Lipitor 40 mg p.o. at bedtime. Atenolol 50 mg p.o. daily. Altace 10 mg p.o. daily. Amaryl 1 mg p.o. daily with breakfast. Lasix 40 mg p.o. q.a.m. Digoxin 250 mcg p.o. daily. Lasix 60 mg p.o. q.a.m. Hydralazine 25 mg p.o. t.i.d. Isordil 40 mg p.o. t.i.d. DISCHARGE INSTRUCTIONS: She will follow up in my office within [address] Renee as well. I will repeat CMP, amylase, lipase and CBC at her follow up visit. A1c during the hospitalization was noted to be 6. cc: MD Shaun Hanna MD
== END 2016-08-24 12:57 | disposition home or self-care (01) ==
LOC: ED 14:53 → 4N 18:27
PROVIDERS: ADMIT Internal Medicine; ATTEND Family Medicine

== ENCOUNTER 2019-06-15 05:04 | Observation (INO) ==
--- NOTE | 2019-06-15 06:18 | PROVIDER DOCUMENTATION ---
HPI-General Adult - General Chief Complaint: Shortness of Breath Stated Complaint: SLURRED SPEECH, WEAK Time Seen by Provider: 06/15/19 07:03 Source: patient Allergies/Adverse Reactions: Patient Allergies Allergy/AdvReac Type Severity Reaction Status Date / Time No Known Allergies Allergy Verified 06/15/19 05:19 Home Medications: Home Medication List Medication Instructions Recorded Confirmed Last Taken Type Atenolol 50 mg PO DAILY #30 06/13/14 06/15/19 06/14/19 07:00 Rx Atorvastatin Calcium [Lipitor] 40 mg PO QHS #30 06/13/14 06/15/19 06/14/19 18:30 Rx Hydralazine [Apresoline] 25 mg PO TID@0700,1400,1999 #90 08/24/16 06/15/19 06/14/19 Rx tablet Isosorbide Dinitrate [Isordil] 40 mg PO TID@0700,1400,1999 #90 08/24/16 06/15/19 06/14/19 18:30 Rx tablet Digoxin [Lanoxin] 250 microgm PO DAILY #30 tab 09/23/17 06/15/19 06/14/19 07:00 Rx Furosemide [Lasix] 80 mg PO BID #60 tab 09/23/17 06/15/19 06/14/19 18:30 Rx Spironolactone [Aldactone] 25 mg PO DAILY #30 tab 09/23/17 06/15/19 06/14/19 07:00 Rx Aspirin [Aspirin EC] 81 mg PO DAILY 06/15/19 06/15/19 06/14/19 07:00 History Famotidine [Pepcid] 40 mg PO BID 06/15/19 06/15/19 06/14/19 18:30 History Glimepiride 0.5 mg PO BID 06/15/19 06/15/19 06/14/19 18:30 History - History of Present Illness -Gen Adult Nature of Presenting Problems: 73 y/o F presents to the ED complaining of generalized weakness. States she has been sick with "a cold" for 1-2 weeks with congestion, cough and fatigue and this morning awoke feeling very weak and slightly confused. When pt arrived in the ED BS was checked and found to be 45. Given po juice and a snack with marked improvement in BS, weakness and sensation of confusion. no chest pain, no dyspnea no nausea or vomiting no diarrhea. Takes oral diabetic meds and does not check her BS regularly. States she had a very small meal last night for dinner which is unusual for her. Review of Systems - Adult - REVIEW OF SYSTEMS - ADULT Constitutional: denies: chills, fever Eyes: reports: no symptoms reported Ears, Nose, Mouth & Throat: reports: no symptoms reported Cardiovascular: denies: chest pain Respiratory: reports: cough. denies: shortness of breath Gastrointestinal: denies: abdominal pain, diarrhea, nausea, vomiting Genitourinary: reports: no symptoms reported Musculoskeletal: reports: no symptoms reported Integumentary: reports: no symptoms reported Neurological: reports: no symptoms reported Psychiatric: reports: no symptoms reported Endocrine: reports: no symptoms reported Hematologic/Lymphatic: reports: no symptoms reported Allergic/Immunologic: reports: no symptoms reported All Other Systems: Reviewed and Negative Past History - Adult - PAST MEDICAL HISTORY-ADULT Review of Records: reports: Nursing Assessment Review, Medications Reviewed, Social history reviewed & non-contributory. Cardiovascular: reports: CHF, HTN, hyperlipidemia Neurological: reports: CVA (in 2010) Endocrine/Immune: reports: Diabetes - PRIOR SURGERIES/PROCEDURES Surgical/Procedure History: reports: appendectomy - IMMUNIZATION STATUS Flu Vaccine: UTD Physical Exam-General - PHYSICAL EXAM-ADULT Initial Vital Signs Reviewed: Yes - CONSTITUTIONAL General Appearance: appears well, alert, no apparent distress - EYES Eyes: PERRL/EOMI, pink conjunctivae - HEAD, EARS, NOSE, MOUTH & THROAT HENMT: normocephalic/atraumatic, moist mucous membranes, normal ENT inspection - NECK Neck: non-tender, full range of motion, supple - RESPIRATORY Respiratory: chest non-tender, lungs clear, normal breath sounds - CARDIOVASCULAR Cardiovascular: normal peripheral pulses, regular rate, rhythm, no edema, no JVD - GASTROINTESTINAL (ABDOMEN) Abdominal Exam: non tender, soft - MUSCULOSKELETAL Back Exam: normal inspection, no CVA tenderness, no vertebral tenderness Extremity: normal range of motion, non-tender, normal gait - SKIN Integumentary: normal color, normal turgor, warm/dry - NEUROLOGIC Neurologic: cert occupational therapy asst II-XII nml as tested, grossly normal, no motor/sensory deficits - PSYCHIATRIC Psych/Mental Status: normal mood/affect, normal thought content, normal thought process, oriented x 3 Progress - PLAN OF CARE/RESULTS Progress/Plan/Lab Results: Vital Signs - 8 hr 06/15/19 05:09 Temperature 97.4 F L Pulse Rate 73 Respiratory Rate 17 Blood Pressure 166/89 O2 Sat by Pulse Oximetry 97 Laboratory Results - last 24 hr 06/15/19 06/15/19 05:15 05:55 POC Glucose 43 L D 79 D Orders Category Date Time Status Check glucose DIRECTED Care 06/15/19 06:08 Ordered IV Insertion ORDERED Care 06/15/19 06:08 Ordered Nursing- Obtain EKG ONCE Care 06/15/19 06:08 Ordered BASIC METABOLIC PANEL [CHEM] Stat Lab 06/15/19 06:08 Uncollected CBC WITH DIFF [HEME] Stat Lab 06/15/19 06:08 Uncollected INFLUENZA SCREEN A/B Stat Lab 06/15/19 06:08 Uncollected TROPONIN T HIGH SENSITIVITY Stat Lab 06/15/19 06:08 Uncollected URINALYSIS W/POSS RFLX CULT [URINALYSIS] Stat Lab 06/15/19 06:08 Uncollected EKG [EKG] Stat Ther 06/15/19 06:08 Ordered hypoglycemia with generalized weakness and recent cough and congestion. BS impr evert with po intake. Will further evaluate for causes including but not limited to hypogelycemia, uti, bronchitis, pna, uti, dehydration, acs, influenza, viral syndrome Result Diagrams: 06/15/19 06:21 06/15/19 06:21 - REASSESSMENT Reassessment #1 Time Reassessed: 08:50 Status: improving (serial fsbs improving, able to eat snack and breakfast, remains awake,alert, no slurred peech CT brain w/o acute. boarderline trop 94 and EKG) - XRAY 1 XRAY Study: Chest Impression: See EMR Report - CT/MRI 1 CT Study: Head Impression: Normal, See EMR Report - CONSULTS/PCP/HOSPITALIST Notification #1 *Consult/PCP/Hospitalist*: hospitalist Time Discussed: 08:40 Consult Disposition: Admit #2 Consult: DR MARTE FOR DR DENNIS Time Discussed: 09:55 Consult Disposition: Admit - CHANGE OF SHIFT REPORT (ED Provider) 1 Report Given and Care Transferred to:: Dr. Garcia Time of Transfer: 07:00 Items Pending: Labs, XRAY Results Departure - Departure Date of Disposition Decision: 06/15/19 Time of Disposition Decision: 08:54 DIAGNOSIS: Hypoglycemia, Weakness, Elevated troponin Disposition: ADMITTED INPATIENT 09 Certified Medical Emergency: Emergent Condition: Stable - Critical Care Note This patient required my direct & personal management of CC.: No Attestation - Physician/ [place] Attestation The physician spent face to face time with patient:: Yes Advanced Practice Provider documentation review:: Supervising physician onsite and consulted in the evaluation and care of this patient. The physician did have a face to face encounter with the patient.
[2019-06-15 06:21] LABS: URINE SOURCE CLEAN CATCH
[2019-06-15 06:23] LABS: BILIRUBIN URINE NEGATIVE (NEGATIVE); BLOOD URINE NEGATIVE (NEGATIVE); COLOR STRAW; GLUCOSE URINE NEGATIVE (NEGATIVE); KETONE URINE NEGATIVE (NEGATIVE); LEUKOCYTES URINE NEGATIVE (NEGATIVE); NITRITE URINE NEGATIVE (NEGATIVE); PH URINE 6.5; PROTEIN URINE TRACE mg/dL (NEGATIVE); SP GRAVITY URINE 1.008; TURBIDITY URINE CLEAR (CLEAR); UROBILINOGEN URINE NORMAL (NORMAL)
[2019-06-15 06:25] LABS: UR EPITHELIAL CELLS <10 /HPF (<10); URINE BACTERIA NEGATIVE /HPF; URINE RBC <10 /HPF (<10); URINE WBC <10 /HPF (<10)
[2019-06-15 06:37] LABS: BASO# 0.04 X1000 (0.0-0.2); BASO% 0.6 % (0.0-0.8); EOS# 0.12 X1000 (0.0-0.7); EOS% 1.7 % (0.0-10.0); HEMATOCRIT 29.1 % (37.0-47.0); HEMOGLOBIN 8.8 g/dL (12.0-16.0); LYMPH# 1.33 X1000 (1.2-3.4); LYMPH% 18.7 % (20.5-51.1); MCH 26.2 PG (27-31); MCHC 30.2 g/dL (33-37); MCV 86.6 FL (81-99); MONO# 0.38 X1000 (0.11-0.59); MONO% 5.3 % (1.7-9.3); MPV 10.9 FL (7.4-10.4); NEUT# 5.25 X1000 (1.4-6.5); NEUT% 73.7 % (42.2-75.2); PLT 278 X1000 (130-400); RBC 3.36 XMIL (4.2-5.4); RDW 14.8 % (11.5-14.5); WBC 7.12 X1000 (4.8-10.8)
[2019-06-15 07:00] LABS: CALCIUM 7.1 mg/dL (8.8-10.2); CREATININE 3.2 mg/dL (0.5-0.9)
--- NOTE | 2019-06-15 07:11 | Diag Imaging Result Doc PS360 ---
CHEST-2 VIEWS - 06/15/2019 INDICATION: cough COMPARISON: 09/29/2017 FINDINGS: Lung volumes are lower. There is cardiomegaly and mild pulmonary vascular congestion. No infiltrates or definite edema. No pneumothorax or pleural effusion. IMPRESSION: Cardiomegaly and mild pulmonary vascular congestion. Electronically signed by Yg Hall 06/15/2019 7:09 AM
--- NOTE | 2019-06-15 08:39 | Diag Imaging Result Doc PS360 ---
CT HEAD W/O CONTRAST - 06/15/2019 INDICATION: slurred speech COMPARISON: 06/15/2011 FINDINGS: There is mild diffuse cerebral atrophy. There are a few scattered old lacunae in the basal ganglia bilaterally. The atrophy has worsened since prior. No intracranial mass or hemorrhage. The skull is intact. The sinuses, mastoids, and middle ears are clear. IMPRESSION: Slight worsening cerebral atrophy. No acute intracranial process. This exam was performed using automated exposure control, adjustment of mA or kV according to patient size, and/or use of iterative reconstruction technique Electronically signed by Yg Hall 06/15/2019 8:36 AM
[2019-06-15] MEDS ORDERED: NS 1,000 ML IV ONE (09:57)
[2019-06-15] MEDS ORDERED: TYLENOL PO PRN (09:57)
[2019-06-15] MEDS ORDERED: D50W SYRINGE IV ONE ×2 (10:03→13:51)
--- NOTE | 2019-06-15 10:36 | EKG Report ---
Test Performed on : 06/15/2019 06:28:15 AM Test Reason : weakness Blood Pressure : / mmHG Vent. Rate : 080 BPM Atrial Rate : 080 BPM P-R Int : 132 ms QRS Dur : 086 ms QT Int : 374 ms P-R-T Axes : 061 052 172 degrees QTc Int : 431 ms Normal sinus rhythm. ST & T wave abnormality, consider anterolateral ischemia Abnormal ECG When compared with ECG of 15-JUN-2019 06:27, (Unconfirmed) No significant change was found Unconfirmed Result
[2019-06-15] MEDS ORDERED: D5 NS 1,000 ML IV ONE (11:48)
[2019-06-15] MEDS ORDERED: NEXIUM IV SCH (14:30)
[2019-06-15] MEDS ORDERED: SODIUM CHLORIDE 0.9% INJ SCH (14:30)
[2019-06-15] MEDS ORDERED: LOVENOX SUBQ SCH (14:30)
--- NOTE | 2019-06-15 14:49 | HISTORY AND PHYSICAL ---
CHIEF COMPLAINT: Slurring of speech, weakness and hypoglycemia. HISTORY OF PRESENT ILLNESS: She is a 73-year-old pleasant female, lives in [place], the patient of Dr. Austin, came in with above symptoms. Patient has chronic kidney disease along with hypoglycemia. The patient has been on low doses of sulfonylureas, glimepiride. The patient was started on IV dextrose and still blood sugars were dropping 44. Have given D50 in the emergency room, waiting to be admitted. The patient denies of any chest pain and troponin was positive, which is a false-positive. Basically admitted to the hospital for hypoglycemia causing metabolic encephalopathy. PAST MEDICAL HISTORY: 1. Stage 4 chronic kidney disease followed by Dr. Vinson. 2. Chronic systolic diastolic heart failure. The EF around 50%. Noncritical CAD based on the left heart catheterization by Dr. Renee in 2014. 3. Metabolic syndrome. 4. Hypertension. 5. Type 2 diabetes. 6. History of strokes without any residual deficits. 7. History of kidney stones. 8. Noncompliance. 9. Diverticulosis. PAST SURGICAL HISTORY: Reported appendectomy, bilateral tubal ligation. SOCIAL HISTORY: Lives in [place], single. She has given to 4 children and only 2 are living. 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 Long-standing smoker at half a pack a day and denies any alcohol use. FAMILY HISTORY: Mother of kidney failure. Father was not known. History of sickle cell disease. Aunt had a cancer. MEDICINES PRIOR TO ADMISSION: 1. Lipitor 40 mg daily. 2. Atenelol 50 mg daily. 3. Hydralazine 25 mg t.i.d. 4. Isosorbide 40 mg t.i.d. 5. Lanoxin 250 mcg daily. 6. Lasix 80 p.o. b.i.d. 7. Aldactone 25 daily. 8. Aspirin 81 mg daily. 9. Glimepiride 1 mg half p.o. b.i.d. 10. Pepcid 40 b.i.d. ALLERGIES: Not known. She was vaccinated for flu and pneumonia. I do not have any details. REVIEW OF SYSTEMS: HEENT: No headache. No vision problem. No slurring of speech. Neck: No neck pain. Cardiopulmonary: No chest pain. No shortness of breath, PND or orthopnea. Cardiopulmonary no. GI: No nausea, vomiting, abdominal pain. : No history of hesitancy, frequency, dysuria. Extremities: No swelling of legs. No joint pain. Neurologic: No focal symptoms or weakness at this time. OBJECTIVE: Vital signs: Temperature is 97.9 degrees, pulse is 82, blood pressure 172/98. Height is 5 feet. Weight 246 pounds. HEENT: Atraumatic, normocephalic. Pupils equal, reactive to light. TMs are normal. Nose and throat within normal limits. Neck: Supple. No lymphadenopathy. Chest: Bilateral air entry. Heart: Sounds are regular. No murmurs. Abdomen: Belly is soft, obese. Two lower midline abdominal scars present, one is a paramedian. Extremities: No peripheral edema or cyanosis. Neurologic: No obvious neurological deficits. INVESTIGATIONS: White cell count 7.1, hematocrit 29, platelet 278,000. Sodium 142, potassium 4.0, BUN 45, creatinine 3.2, glucose 54. Troponin T was high. Urinalysis is clear. Baseline creatinine was pretty much stable. ASSESSMENT AND PLAN: A 73-year-old female patient of Dr. Austin admitted to the hospital for altered mental status due to hypoglycemia with underlying chronic kidney disease. PLAN: 1. Dextrose 75 mL/hour. Check the blood sugar every 2 hours and D50 as needed. Continue diabetic diet. 2. Hold the glimepiride that might be the cause with underlying chronic kidney disease, and patient is already on a homeopathic dose and will check the A1c, C-peptide. 3. Positive troponin. No chest pain. EKG on 06/15/2019 with normal sinus rhythm. QT interval 431 milliseconds. No acute ischemic changes noted. Last cardiac catheterization was done 2014. We will continue to monitor. 4. Reconcile home medications. 5. DVT prophylaxis with low dose of Lovenox 30 mg subcutaneous daily. 6. Gastrointestinal prophylaxis with IV Protonix. 7. The patient is waiting to be admitted to the floor on telemetry and will follow up. cc: MD David De Anda MD [facility]
[2019-06-15] MEDS: PROTONIX IV SCH (15:37)
[2019-06-15] MEDS: SODIUM CHLORIDE 0.9% INJ SCH (15:37)
[2019-06-15] MEDS: APRESOLINE PO SCH (19:35)
[2019-06-15] MEDS: ISORDIL PO SCH (19:36)
[2019-06-15] MEDS: LIPITOR PO SCH ×2 (19:36→21:45)
[2019-06-15] MEDS: LASIX PO SCH ×2 (19:36→21:45)
[2019-06-16] MEDS: APRESOLINE PO SCH ×3 (05:59→20:14)
[2019-06-16] MEDS: ISORDIL PO SCH ×3 (05:59→20:14)
[2019-06-16 07:52] LABS: BASO# 0.05 X1000 (0.0-0.2); BASO% 0.8 % (0.0-0.8); EOS# 0.33 X1000 (0.0-0.7); EOS% 5.4 % (0.0-10.0); HEMATOCRIT 29.5 % (37.0-47.0); HEMOGLOBIN 8.7 g/dL (12.0-16.0); LYMPH# 2.54 X1000 (1.2-3.4); LYMPH% 41.4 % (20.5-51.1); MCH 25.4 PG (27-31); MCHC 29.5 g/dL (33-37); MCV 86.3 FL (81-99); MONO# 0.59 X1000 (0.11-0.59); MONO% 9.6 % (1.7-9.3); MPV 11.2 FL (7.4-10.4); NEUT# 2.63 X1000 (1.4-6.5); NEUT% 42.8 % (42.2-75.2); PLT 294 X1000 (130-400); RBC 3.42 XMIL (4.2-5.4); RDW 14.6 % (11.5-14.5); WBC 6.14 X1000 (4.8-10.8)
[2019-06-16 08:06] LABS: HEMOGLOBIN A1C 5.1 % (4.8-6.0)
[2019-06-16 08:15] LABS: CALCIUM 7.3 mg/dL (8.8-10.2); CREATININE 3.4 mg/dL (0.5-0.9); POTASSIUM 4.6 mmol/L (3.5-5.1)
[2019-06-16] MEDS: ALDACTONE PO SCH (08:57)
[2019-06-16] MEDS: LASIX PO SCH ×2 (08:57→20:14)
[2019-06-16] MEDS: TENORMIN PO SCH (08:57)
--- NOTE | 2019-06-16 09:20 | EKG Report ---
Test Performed on : 06/16/2019 06:52:16 AM Test Reason : ELEV TROP Blood Pressure : / mmHG Vent. Rate : 060 BPM Atrial Rate : 060 BPM P-R Int : 126 ms QRS Dur : 088 ms QT Int : 448 ms P-R-T Axes : 045 065 183 degrees QTc Int : 448 ms Normal sinus rhythm. ST & T wave abnormality, consider inferior ischemia ST & T wave abnormality, consider anterolateral ischemia Abnormal ECG When compared with ECG of 15-JUN-2019 06:28, (Unconfirmed) No significant change was found Confirmed by Foster DODD, Reymundo Vasquez ([id number]) on 06/17/2019 5:58:27 PM
[2019-06-16] MEDS: SODIUM CHLORIDE 0.9% INJ SCH (14:05)
[2019-06-16] MEDS: PROTONIX IV SCH (14:05)
--- NOTE | 2019-06-16 14:16 | PROGRESS NOTE ---
DATE: 06/16/2019 SUBJECTIVE: The patient is doing better and off of dextrose. Blood sugars are running very well, around 150. C-peptide is pending. A1c 5.1. REVIEW OF SYSTEMS: None reported. OBJECTIVE: Vital signs: Temperature is 98.4 degrees, pulse 65, blood pressure is 130/61. Weight 246 pounds. HEENT: Within normal limits. Chest: Bilateral air entry. Heart: Sounds are regular. Abdomen: Belly is soft, obese, nontender. No obvious deficits. INVESTIGATIONS: CBC: White cell count 6.1, hematocrit 29.5, platelets 294,000. SMA 7: Sodium 143, potassium 4.6, chloride 107, BUN 41, creatinine 3.4, glucose is 98, A1c 5.1, calcium 7.3. CK 120. Troponin T is positive. ASSESSMENT AND PLAN: 1. Hypoglycemia with chronic kidney disease. A1c is excellent. Probably she might control with diet. Discontinue glimepiride. 2. Follow up on C-peptide. 3. Positive troponin, false-positive. CK was normal. EKG is negative. No chest pain. I will defer the opinion based on her clinical picture to Dr. Austin. Previous catheterization was noncritical CAD back in 2014. 4. Chronic kidney disease, stable. Will check the SPEP. Change the blood sugars every 4 hours. Continue to monitor. 5. Deep venous thrombosis prophylaxis with Lovenox. Dr. Austin is going to follow up. LEVEL OF DOCUMENTATION: Twenty-five minutes. cc: MD David De Anda MD
[2019-06-16] MEDS ORDERED: LOVENOX SUBQ SCH (14:30)
[2019-06-16] MEDS: LIPITOR PO SCH (20:14)
[2019-06-17] MEDS: ISORDIL PO SCH (06:27)
[2019-06-17] MEDS: APRESOLINE PO SCH (06:27)
[2019-06-17 07:25] LABS: BASO# 0.04 X1000 (0.0-0.2); BASO% 0.6 % (0.0-0.8); EOS# 0.34 X1000 (0.0-0.7); EOS% 4.9 % (0.0-10.0); HEMATOCRIT 29.9 % (37.0-47.0); LYMPH# 2.77 X1000 (1.2-3.4); LYMPH% 39.9 % (20.5-51.1); MCH 25.8 PG (27-31); MCHC 30.1 g/dL (33-37); MCV 85.7 FL (81-99); MONO# 0.57 X1000 (0.11-0.59); MONO% 8.2 % (1.7-9.3); MPV 11.2 FL (7.4-10.4); NEUT# 3.22 X1000 (1.4-6.5); NEUT% 46.4 % (42.2-75.2); PLT 298 X1000 (130-400); RBC 3.49 XMIL (4.2-5.4); RDW 14.6 % (11.5-14.5); WBC 6.94 X1000 (4.8-10.8)
[2019-06-17 07:34] VITALS: BP 132/48
[2019-06-17 07:50] LABS: CALCIUM 7.7 mg/dL (8.8-10.2); CREATININE 3.9 mg/dL (0.5-0.9); POTASSIUM 4.7 mmol/L (3.5-5.1)
[2019-06-17] MEDS: ALDACTONE PO SCH (10:16)
[2019-06-17] MEDS: TENORMIN PO SCH (10:16)
[2019-06-17] MEDS: LASIX PO SCH (10:16)
--- NOTE | 2019-06-17 17:50 | PROGRESS NOTE ---
DATE: 06/17/2019 SUBJECTIVE: Patient feeling much better. She is eating well. The patient has chronic kidney disease, followed by Nephrology. She has been on very low-dose Amaryl but apparently that had built up on her and she had confusion with hypoglycemia. That has now resolved and she has been doing well off of the medicine and received some glucose which helped the situation. The patient on questioning had some cough but no fever and has had improvement in that some during the hospitalization as well. OBJECTIVE: Vital signs: Afebrile. Vital signs stable. CV: RRR. Lungs: CTA. Extremities: No major edema. LABORATORY: Blood sugars in the mid 100s. White count 6.9, hemoglobin 9.0, platelets 298,000. Sodium 140, potassium 4.7, chloride 104, CO2 22, BUN 44, creatinine 3.9. ASSESSMENT: 1. Hypoglycemia, resolved. 2. Type 2 diabetes mellitus, now with recommended ADA diet only without medication. 3. Chronic kidney disease, followed by Nephrology. 4. Recent cough. Rule out mild congestive heart failure, chronic systolic and diastolic, compensated. 5. Hypertension. 6. History of cerebrovascular accidents in the past without residual. 7. Diverticulosis. 8. Anemia of chronic disease. 9. Noncritical coronary artery disease. PLAN: We will discharge the patient home on her home medications except for no Amaryl. For the cough, we will give her Tessalon Perles. We will follow her up in the office within 1 week and consider proBNP, BMP, CBC, and chest x-ray again at that time. cc: David Austin MD
== END 2019-06-17 17:36 | disposition home or self-care (01) ==
LOC: ED 05:04 → EDIPHOLD 05:04 → 3N 14:43
PROVIDERS: ADMIT Family Medicine; ATTEND Family Medicine